=== PATIENT | female | born 1965 ===

== ENCOUNTER 2022-10-23 14:25 | Inpatient (IN) | payer MEDICARE ==
[2022-10-23] MEDS ORDERED: MAG HYDROX/AL HYDROX/SIMETH 30 ML CUP PO PRN (14:37)
[2022-10-23] MEDS ORDERED: MAGNESIUM HYDROXIDE 2,400 MG/30 ML CUP PO PRN (14:37)
[2022-10-23] MEDS ORDERED: haloperidoL 5 MG TAB PO PRN (14:39)
[2022-10-23] MEDS ORDERED: HALOPERIDOL LACTATE 5 MG/ML 1 ML VIAL IM PRN (14:39)
[2022-10-23] MEDS ORDERED: LORazepam 2 MG/ML INJ IM PRN (14:39)
[2022-10-23] MEDS: ACETAMINOPHEN TAB 325 MG TAB PO PRN ×2 (18:12→22:35)
[2022-10-23] MEDS: LORazepam 1 MG TAB PO PRN (18:13)
[2022-10-23] MEDS ORDERED: LORazepam 2 MG/ML INJ IM STA (18:35)
[2022-10-23] MEDS ORDERED: ZIPRASIDONE 20 MG VIAL IM STA (19:19)
[2022-10-24] MEDS: LORazepam 1 MG TAB PO PRN ×2 (00:39→11:36)
--- NOTE | 2022-10-24 05:35 | P.PN ---
Progress Note - Text Progress Note Date: 10/24/22 patient refused evaluation today 10/23 @ [id number]
[2022-10-24] MEDS ORDERED: LORazepam 2 MG/ML INJ IM PRN ×2 (07:58→12:20)
[2022-10-24 08:00] LABS: Basophils % (A) 0 %; Eosinophils # (A) 0.1 k/uL (0-0.7); Eosinophils % (A) 3 %; HCT 21.6 % (34.0-46.0); HGB 7.3 gm/dL (11.4-16.0); Lymphocytes % (A) 42 %; MCH 32.8 pg (25.0-35.0); MCHC 34.1 g/dL (31.0-37.0); MCV 96.4 fL (80.0-100.0); Mean Platelet Volume 7.6; Monocytes # (A) 0.2 k/uL (0-1.0); Monocytes % (A) 4 %; Neutrophils # (A) 2.4 k/uL (1.3-7.7); Neutrophils % (A) 49 %; Platelet Count 130 k/uL (150-450); RBC 2.24 m/uL (3.80-5.40); RDW 13.1 % (11.5-15.5); WBC 4.8 k/uL (3.8-10.6)
[2022-10-24 08:53] LABS: ALT 48 U/L (4-34); AST 45 U/L (14-36); African American GFR (CKD) >90 (>60 ml/min/1.73 sqM); Albumin 3.2 g/dL (3.5-5.0); Alkaline Phosphatase 57 U/L (38-126); Anion Gap 5 mmol/L; Blood Urea Nitrogen 11 mg/dL (7-17); Calcium 8.2 mg/dL (8.4-10.2); Carbon Dioxide 25 mmol/L (22-30); Chloride 110 mmol/L (98-107); Glucose 99 mg/dL (74-99); Non-African American GFR(CKD) >90 (>60 ml/min/1.73 sqM); Sodium 140 mmol/L (137-145); Total Bilirubin 0.2 mg/dL (0.2-1.3); Total Protein 5.3 g/dL (6.3-8.2)
[2022-10-24] MEDS ORDERED: CHOLECALCIFEROL 25 MCG (1000 IU) TABLET PO SCH (09:00)
[2022-10-24] MEDS ORDERED: ATORVASTATIN 40 MG TAB PO SCH (09:00)
[2022-10-24] MEDS ORDERED: ASPIRIN 81 MG PO SCH (09:00)
[2022-10-24 10:46] LABS: HCT 21.4 % (34.0-46.0); HGB 7.4 gm/dL (11.4-16.0); MCH 33.1 pg (25.0-35.0); MCHC 34.4 g/dL (31.0-37.0); MCV 96.4 fL (80.0-100.0); Mean Platelet Volume 7.9; Platelet Count 124 k/uL (150-450); RBC 2.22 m/uL (3.80-5.40); RDW 13.1 % (11.5-15.5); WBC 4.9 k/uL (3.8-10.6)
[2022-10-24 11:16] VITALS: BP 118/77; PULSE 126; RESP 16; TEMP 97.3
[2022-10-24] MEDS ORDERED: NALOXONE 0.4 MG/ML 1 ML VIAL IV PRN (12:16)
[2022-10-24] MEDS ORDERED: LORazepam 2 MG/ML INJ IV PRN (12:19)
== END 2022-10-24 12:13 | disposition short-term general hospital, planned readmission (82) | DRG 885 ==
LOC: 3MHU 17:58
PROVIDERS: ADMIT Psychiatry & Neurology Psychiatry; ATTEND Psychiatry & Neurology Psychiatry
DX: F39 Unspecified mood [affective] disorder (principal); F41.1 Generalized anxiety disorder; F90.9 Attention-deficit hyperactivity disorder, unspecified type; Z86.73 Personal history of transient ischemic attack (TIA), and cerebral infarction without residual deficits; Z87.820 Personal history of traumatic brain injury; Z56.0 Unemployment, unspecified
CPT/HCPCS: 80053; 83036; 84443; 85025; 85027

== ENCOUNTER 2022-10-24 11:45 | Inpatient (IN) | payer MEDICARE ==
[2022-10-24] MEDS ORDERED: NALOXONE 0.4 MG/ML 1 ML VIAL IV PRN (13:22)
[2022-10-24] MEDS ORDERED: LORazepam 2 MG/ML INJ IM PRN (13:26)
--- NOTE | 2022-10-24 16:55 | P.HPIM ---
History of Present Illness H&P Date: 10/24/22 Patient is a 56-year-old female with history of hypertension, ADHD presenting from outside hospital for suicidal ideations. Had cut her wrist at home. She is unsure, she bled from it. Patient was originally admitted to mental health unit. However, at other facility her hemoglobin was normal, but lab work care showed a hemoglobin of 7.4, platelet 124. Patient was also tachycardic and complaining of weakness and lightheadedness. Patient was then transferred out of the mental health unit for blood transfusion and further workup of acute symptomatic anemia. Currently her temperature is 98.1, pulse 74, respiratory rate 18, blood pressure 126/84, saturating 90% on room air. Hemoglobin last checked showed was 7.4, platelet 124, chloride 110, creatinine 0.7, TSH 3.5. Currently denies any lightheadedness, chest pain, shortness of breath. Pertinent positives and negatives as discussed in HPI, a complete review of systems was performed and all other systems are negative. Patient seen and examined at bedside. Vital signs reviewed General: nontoxic, no distress, appears at stated age Derm: warm, dry Head: atraumatic, normocephalic, symmetric Eyes: EOMI, no lid lag, anicteric sclera, pupils equal round reactive to light ENT: Nose and ears atraumatic Neck: No thyromegaly, supple Mouth: no lip lesion, mucus membranes moist Cardiovascular: S1S2 reg, no murmur, no edema Lungs: clear to auscultation bilateral, no rhonchi, no rales, no wheeze, no accessory muscle use Abdominal: soft, nontender to palpation, no guarding, no appreciable organomegaly Ext: no gross muscle atrophy, muscle strength muscle strength 5 out of 5 in all 4 extremities, no contractures Neuro: CN II-XII grossly intact Psych: Alert, oriented, appropriate affect Assessment/Plan: Active: Acute symptomatic anemia Hypertension Suicidal ideations Acute psychosis Anxiety ADHD -1 unit PRBCs ordered -Reticulocyte count, iron studies ordered -CBC following transfusion -Continue losartan -Psychiatry consulted -Sitter at bedside -suicide precautions The patient is admitted with an anticipated greater than 2 midnight stay as an inpatient status for evaluation of acute symptomatic anemia. Surrogate decision-maker: Daughter CODE STATUS: Full Code DVT prophylaxis: SCDs Anticipated discharge date: Pending clinical course Anticipated discharge place: Back to mental health unit A total of minutes was spent on the care of this complex patient more than 50% of the time was spent in counseling and care coordination. Past Medical History History of Any Multi-Drug Resistant Organisms: None Reported Smoking Status: Never smoker Medications and Allergies Home Medications Medication Instructions Recorded Confirmed Type ALPRAZolam [Xanax] 1 mg PO TID 10/24/22 10/24/22 History Aspirin EC [Ecotrin Low Dose] 81 mg PO DAILY 10/24/22 10/24/22 History Cholecalciferol [Vitamin D3 (25 50 mcg PO DAILY 10/24/22 10/24/22 History Mcg = 1000 Iu)] Dextroamphetamine/Amphetamine 15 mg PO DAILY 10/24/22 10/24/22 History [Adderall Xr 15 mg Capsule] Losartan Potassium 50 mg PO BID 10/24/22 10/24/22 History Allergies Allergy/AdvReac Type Severity Reaction Status Date / Time gabapentin AdvReac agitation, Verified 10/24/22 13:38 "felt like she was jumping out of her skin" prochlorperazine AdvReac Unknown Verified 10/24/22 13:38 [From Compazine] Sulfa (Sulfonamide AdvReac Unknown Verified 10/24/22 13:38 Antibiotics) zolmitriptan [From Zomig] AdvReac Unknown Verified 10/24/22 13:38 Physical Exam Vitals: Vital Signs Temp Pulse Resp BP Pulse Ox 10/24/22 13:34 98.1 F 74 18 126/84 100 Intake and Output 10/24/22 10/24/22 10/24/22 06:59 14:59 22:59 Other: Weight 99.159 kg Results Labs: Abnormal Lab Results - Last 24 Hours (Table) 10/24/22 Range/Units 12:00 Crossmatch See Detail
[2022-10-24] MEDS: ALPRAZolam 1 MG TAB PO SCH ×2 (17:12→21:29)
[2022-10-24] MEDS: LOSARTAN 50 MG TAB PO SCH (21:29)
[2022-10-25] MEDS ORDERED: LORazepam 2 MG/ML INJ IV PRN (00:45)
[2022-10-25] MEDS ORDERED: MELATONIN 5 MG TABLET PO SCH (02:46)
[2022-10-25] MEDS: ACETAMINOPHEN TAB 325 MG TAB PO PRN ×2 (02:59→18:30)
[2022-10-25] MEDS: ALPRAZolam 1 MG TAB PO SCH (10:07)
[2022-10-25] MEDS: LOSARTAN 50 MG TAB PO SCH ×2 (10:08→20:31)
[2022-10-25] MEDS: CHOLECALCIFEROL 25 MCG (1000 IU) TABLET PO SCH (10:08)
[2022-10-25 11:12] LABS: Basophils # (A) 0.02 X 10*3/uL (0.00-0.10); Basophils % (A) 0.4 %; Eosinophils % (A) 2.1 %; HCT 23.4 % (37.2-46.3); HGB 7.8 d/dL (12.0-15.0); Lymphocytes # (A) 2.35 X 10*3/uL (0.90-5.00); Lymphocytes % (A) 48.4 %; MCH 31.8 pg (27.0-32.0); MCHC 33.3 d/dL (32.0-37.0); MCV 95.5 FL (80.0-97.0); Mean Platelet Volume 10.1 FL (9.5-12.2); Monocytes # (A) 0.29 X 10*3/uL (0.20-1.00); NRBC Per 100 WBC 0 X 10*3/uL (0.00-0.01); Neutrophils # (A) 2.09 X 10*3/uL (1.80-7.70); Neutrophils % (A) 42.9 %; Platelet Count 127 X 10*3/uL (140-440); RBC 2.45 X 10*6/uL (4.10-5.20); RDW 13.2 % (11.5-14.5); WBC 4.86 X 10*3/uL (4.50-10.00)
[2022-10-25 12:10] LABS: % Iron Saturation 16.04 (12.00-45.00); Ferritin 71.7 ng/mL (10.0-291.0)
[2022-10-25] MEDS ORDERED: HALOPERIDOL LACTATE 5 MG/ML 1 ML VIAL IM PRN (13:28)
[2022-10-25] MEDS ORDERED: LORazepam 2 MG/ML INJ IM PRN (13:28)
[2022-10-25] MEDS ORDERED: haloperidoL 5 MG TAB PO PRN (13:28)
--- NOTE | 2022-10-25 13:33 | P.CN ---
Psychiatric Consult - . Consult date: 10/25/22 Consult:: 10/25/22 11:44 IDENTIFYING DATA: This patient is a [] 56-year-old female, currently lives alone in an apartment, she is , she has 3 kids, she is unemployed and collects SSD. REASON FOR REFERRAL: Psychiatry was consulted for psychiatric follow-up as patient was previously on the mental health unit for suicide attempt HISTORY OF PRESENT ILLNESS: The patient presented to the hospital initially as a transfer from [facility]. Patient was petitioned by police as she was found in a bathtub in a pool of blood with razor blades after a suicide attempt. Patient after being transferred to the ER was combative, aggressive and agitated and required emergency prn medications and also restraints. Patient was admitted involuntarily to the mental health unit however her hemoglobin dropped significantly to 7.4 and platelet count was 124. Patient cut her wrists at home, she was tachycardic. Patient's repeat hemoglobin was 7.8 on 10/25. Patient was transferred to the medical floors and consult was placed for psychiatric evaluation. Patient had a one-to-one sitter at her side. She was sitting in the chair and agreeable to seek to instructional writer. She claims that she was in a "bad spot" last Friday. She states that she didn't want to live anymore. She claims that a lot of things have been building up in her life and has been feeling lonely and claims that a lot of her relationships in her life have been changing, she was fairly vague about what she is making about this. She claims that her kids up and leaving the house as they are growing up. Claims that she felt that her "world was turning inside out". States that she had a severe concussion earlier on and also a history of a stroke in June while she was in [place] living with a friend. She states that she moved back to [place] to try to live with her ex-. States that she isn't feeling depressed and "sad" and describes having mood swings. She also states that she has anxiety as well. However the anxiety is mainly at nighttime. States assure sleep has been on and off appetite as been fair. At this time patient denies any current suicidal or homical ideations, intent or plan. Patient denies any auditory, visual hallucinations and denies any paranoia or delusions. Patients admits to using now recreational drugs or cigarettes. PAST PSYCHIATRIC HISTORY: Patient has a a history of depression and anxiety and also ADHD. Patient also has a history of a stroke and also a concussion within the past few months. Patient is currently on Xanax 1 mg 3 times a day and has been on it for several years, Adderall for ADHD. She claims that she was previously admitted to a psychiatric unit in [facility] about 5 years ago and has had several before that. She claims that she has a psychiatrist that she sees in [place] as well. [Patient denies any history of suicide attempts in the past.] PAST MEDICAL HISTORY: As per medical H&P. ALLERGIES: as per EMR. CHEMICAL DEPENDENCY HISTORY: as per HPI. FAMILY PSYCHIATRIC/SUBSTANCE USE HISTORY: Claims that she is adopted and does not know her biological family. SOCIAL HISTORY: Patient was born and raised in [place] and also [facility]. States that she currently lives alone in an apartment, she is , she has 3 kids, she is unemployed and collecting SSD at this time. States that she completed high school and also her bachelor's in college. 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 Denies any legal history. MENTAL STATUS EXAM: General Appearance: Patient appears to be sitting in the chair, stated age is alert, pleasant, and tends to be cooperative. Patient appears to have [fair] hygiene and grooming wearing hospital gown with [fair] eye contact. Behavior: [Patient is calmly lying in bed without any agitated behavior.] Attempts to cooperate. Speech: Patient's speech is fluent and nonpressured. Mood/Affect: Patient reports their mood is "[depressed and sad]", affect is congruent Suicidality/Homicidality: Patient denies having any suicidal or homicidal ideation intent or plan. Perceptions: Patient denies any visual hallucinations [and denies any auditory hallucinations] Though content/process: There is no evidence of any delusional thought content and thought process is linear and goal-directed. Focused on her stressors. Memory and concentration: AOX3, grossly intact for the purposes of this session. Can spell "WORLD" backwards Judgment and insight: [poor] IMPRESSIONS: Mood disorder unspecified History of stroke and TBI History of ADHD Generalized anxiety disorder PLAN: -At this time patient DOES meet criteria for inpatient psychiatric admission. -Would recommend the following medication changes/additions: start lithium 150 mg bid for mood stabilization, lexapro 5 mg daily for mood/anxiety plan to increase to 10 mg starting friday. trazodone 50 mg qhs for insomnia/mood. Haldol and Ativan prn for agitation severe. can continue with home dose of xanax 1 mg tid prn for anxiety. [-Continue 1:1 sitter for safety]until patient is safely transferred to the MHU. [-Cannot leave AMA at this time. Patient will need a petition and certification if attempting to leave AMA.] [-When medically stable, patient is eligible for transfer to a psych bed when available.] [-Communicated plan to patient's nurse] -Will continue to follow along if needed over the weekend -Please contact with any questions.
--- NOTE | 2022-10-25 14:05 | P.PN ---
Subjective Progress Note Date: 10/25/22 Hospital Course: 56-year-old female with history of hypertension, ADHD presenting from outside hospital for suicidal ideations. Had cut her wrist at home. She is unsure, she bled from it. Patient was originally admitted to mental health unit. However, at other facility her hemoglobin was normal, but lab work care showed a hemoglobin of 7.4, platelet 124. Patient was also tachycardic and complaining of weakness and lightheadedness. Patient was then transferred out of the mental health unit for blood transfusion and further workup of acute symptomatic anemia. She is status post 1 Unit pRBCs. Subjective: Seen and examined at bedside. Still complaining of weakness, fatigue, and shortness of breath. Denies any suicidal ideations at the moment. No other signs of bleeding. Pertinent positives and negatives as discussed above, a complete review of systems was performed and all other systems are negative. Vitals Signs Reviewed. General: nontoxic, no distress, appears at stated age Derm: warm, dry, left wrist dressing clean, dry, intact Head: atraumatic, normocephalic, symmetric Eyes: EOMI, no lid lag, anicteric sclera Mouth: no lip lesion, mucus membranes moist Cardiovascular: S1S2 reg, no murmur Lungs: CTA bilateral, no rhonchi, no rales , no accessory muscle use Abdominal: soft, nontender to palpation, no guarding, no appreciable organomegaly Ext: no gross muscle atrophy, no edema, no contractures Neuro: CN II-XI grossly intact, no focal neuro deficits Psych: Alert, oriented, appropriate affect Data Reviewed Today: Pertinent Labs: Hemoglobin 7.8, platelet 127, RDW 13.2, reticulocyte count 33.6 (24.1-35.8) Imaging: No new imaging Assessment and Plan: Acute symptomatic anemia Hypertension Suicidal ideations Mood disorder Generalized anxiety disorder History of ADHD -s/p 1 unit pRBCs, not appropriate rise -Reticulocyte count inappropriately normal -Concern for bone marrow failure, hematology consulted -Psychiatry following -Started on lithium, Lexapro, trazodone, Haldol and Ativan when necessary DVT ppx: SCDs Code status: Full code Anticipated discharge place: Mental health unit Anticipated discharge time: 1-2 days Objective - Vital Signs Vital signs: Vital Signs Temp 97.7 F 10/25/22 07:11 Pulse 69 10/25/22 07:11 Resp 16 10/25/22 07:11 BP 113/75 10/25/22 07:11 Pulse Ox 98 10/25/22 07:11 FiO2 Intake & Output 10/24/22 10/25/22 10/25/22 18:59 06:59 18:59 Intake Total 310 Balance 310 Weight 99.159 kg Intake: Blood Product 310 Rc As-1 Unit 310 [id number] Other: Voiding Method Toilet Toilet # Voids 2 1 - Labs CBC & Chem 7: 10/25/22 05:26 Labs: Abnormal Lab Results - Last 24 Hours (Table) 10/24/22 10/25/22 Range/Units 12:00 05:26 RBC 2.45 L (4.10-5.20) X 10*6/uL Hgb 7.8 L (12.0-15.0) d/dL Hct 23.4 L (37.2-46.3) % Plt Count 127 L (140-440) X 10*3/uL Crossmatch See Detail
[2022-10-25] MEDS: ESCITALOPRAM 5 MG TAB PO SCH (15:47)
[2022-10-25] MEDS: LITHIUM CARBONATE 150 MG CAP PO SCH ×2 (15:48→20:31)
--- NOTE | 2022-10-25 17:14 | P.CONS ---
History of Present Illness - Reason for Consult Consult date: 10/25/22 Anemia - History of Present Illness Ms. Herbert is a 56-year-old woman with a past medical history significant for hypertension from hematology has been consulted regarding anemia. She was hospitalized after suicide attempt where she had cut her wrists with a razor. It is unclear how much blood loss there was at the time she was found. It was noted that she was tachycardic on initial presentation with hemoglobin of 7.4 and platelets of 124. Prior to the suicide attempt, she denies any melena, hematochezia, or bright red blood per rectum. She denies any history of iron deficiency anemia and thinks her hemoglobin has always been normal. She denies any history of menorrhagia and had a hysterectomy approximately 10 years ago. She notes having a normal diet prior to presentation and not adhering to a vegan or vegetarian diet. She had a colonoscopy about 5 to 6 years ago and was told at that time she had a polyp and required repeat colonoscopy in 5 years. There were no constitutional symptoms prior to presentation. She does note having had orthostatic dizziness, progressive fatigue, and dyspnea on exertion prior to presentation. She does note having had a hospitalization in [place] over the last 3 months, where she was diagnosed with "stroke". She notes there was no significant finding on work-up at that time. On discussion, she notes there was thought of her initial presentation in [place] being due to a seizure, but notes EEG was performed and was nonremarkable. She thinks at that time, her hemoglobin was normal. CBC on today's evaluation is remarkable for hemoglobin 7.8 (MCV 95.5, MCH 31.8), platelets 127, WBC 4.86. Anemia work-up performed on admission revealed ferritin 71.7, iron saturation 16.04%, vitamin B12 382, folate 9.50, TSH 3.51. Review of Systems 14 point review of systems was conducted with pertinent positives and negatives as noted per HPI Past Medical History Past Medical History: CVA/TIA, Hypertension Additional Past Medical History / Comment(s): long covid, stroke July 12, 2022- no residual, melanoma 2013, History of Any Multi-Drug Resistant Organisms: None Reported Past Surgical History: Hysterectomy Additional Past Surgical History / Comment(s): neck surgery 2007, finger surgery 2022, Past Anesthesia/Blood Transfusion Reactions: No Reported Reaction Smoking Status: Never smoker Medications and Allergies Home Medications Medication Instructions Recorded Confirmed Type ALPRAZolam [Xanax] 1 mg PO TID 10/24/22 10/24/22 History Aspirin EC [Ecotrin Low Dose] 81 mg PO DAILY 10/24/22 10/24/22 History Cholecalciferol [Vitamin D3 (25 50 mcg PO DAILY 10/24/22 10/24/22 History Mcg = 1000 Iu)] Dextroamphetamine/Amphetamine 15 mg PO DAILY 10/24/22 10/24/22 History [Adderall Xr 15 mg Capsule] Losartan Potassium 50 mg PO BID 10/24/22 10/24/22 History Allergies Allergy/AdvReac Type Severity Reaction Status Date / Time gabapentin AdvReac agitation, Verified 10/24/22 13:38 "felt like she was jumping out of her skin" prochlorperazine AdvReac Unknown Verified 10/24/22 13:38 [From Compazine] Sulfa (Sulfonamide AdvReac Unknown Verified 10/24/22 13:38 Antibiotics) zolmitriptan [From Zomig] AdvReac Unknown Verified 10/24/22 13:38 Physical Exam Vitals: Vital Signs Temp Pulse Pulse Resp BP BP Pulse Ox 10/25/22 14:00 97.9 F 89 16 146/90 98 10/25/22 07:11 97.7 F 69 16 113/75 98 10/24/22 23:50 98.2 F 85 18 124/81 97 10/24/22 19:38 98.2 F 87 16 143/89 95 10/24/22 18:55 98.0 F 81 86 18 130/82 119/80 99 10/24/22 17:51 97.9 F 88 16 124/80 99 Intake and Output 10/25/22 10/25/22 10/25/22 06:59 14:59 22:59 Other: Voiding Method Toilet # Voids 1 - Constitutional General appearance: cooperative, no acute distress - EENT Pale mucous membranes with no evidence of glossitis or scalloped edges of the tongue Eyes: EOMI - Respiratory Respiratory: bilateral: CTA - Cardiovascular Rhythm: regular - Gastrointestinal General gastrointestinal: no distended, soft - Integumentary Integumentary: pale - Musculoskeletal No scalloping of the nails - Psychiatric Psychiatric: A&O x's 3 Results CBC & Chem 7: 06/30/23 05:26 Labs: Abnormal Lab Results - Last 24 Hours (Table) 10/24/22 10/25/22 Range/Units 12:00 05:26 RBC 2.45 L (4.10-5.20) X 10*6/uL Hgb 7.8 L (12.0-15.0) d/dL Hct 23.4 L (37.2-46.3) % Plt Count 127 L (140-440) X 10*3/uL Crossmatch See Detail Assessment and Plan (1) Normocytic anemia Current Visit: Yes Status: Acute Code(s): D64.9 - ANEMIA, UNSPECIFIED SNOMED Code(s): 982992095 Plan: #Normocytic anemia, thrombocytopenia -Noted to have normocytic normochromic anemia with hemoglobin 7.8 MCV 95.5 -Platelets are 127 -She notes having had blurry vision, orthostatic dizziness, fatigue, headache prior to presentation -Anemia work-up initiated on admission was significant for borderline low ferritin with low iron saturation -It is not clear if she had significant blood loss from her suicide attempt on the left wrist -Given her borderline low iron studies and symptoms prior to admission, it is not unreasonable to trial course of IV iron for 3 days to see if this improves her hemoglobin and her symptoms over the next month -Reticulocyte count is ordered -We will add methylmalonic acid to ensure there is no functional vitamin B12 deficiency -Given her previous hospitalization in [place] along with her current hospitalization and anemia, we will check copper and ceruloplasmin to assess for copper deficiency and more specifically Daniel's disease
[2022-10-25] MEDS: SODIUM FERRIC GLUCONAT-SUCROSE 125 MG in SODIUM CHLORIDE 0.9% 100 ML IVPB SCH (18:25)
[2022-10-25] MEDS: traZODone HCL 50 MG TAB PO SCH (20:31)
[2022-10-25 20:42] LABS: ALT 47 U/L (8-44); AST 29 U/L (13-35); Albumin 4.2 d/dL (3.8-4.9); Albumin/Globulin Ratio 2.47 Ratio (1.60-3.17); Alkaline Phosphatase 75 U/L (41-126); BUN/Creat Ratio 9.25 Ratio (12.00-20.00); Blood Urea Nitrogen 7.4 mg/dL (9.0-27.0); Calcium 9.3 mg/dL (8.7-10.3); Carbon Dioxide 27.8 mmol/L (21.6-31.8); Chloride 107 mmol/L (96-109); Globulin 1.7 d/dL (1.6-3.3); Glucose 112 mg/dL (70-110); Potassium 4.3 mmol/L (3.5-5.5); Sodium 144 mmol/L (135-145); Total Bilirubin 0.2 mg/dL (0.3-1.2); Total Protein 5.9 d/dL (6.2-8.2)
[2022-10-25] MEDS: ALPRAZolam 1 MG TAB PO PRN (21:59)
[2022-10-26] MEDS: ACETAMINOPHEN TAB 325 MG TAB PO PRN (06:11)
[2022-10-26 08:00] VITALS: RESP 18
[2022-10-26 09:48] LABS: Basophils # (A) 0.02 X 10*3/uL (0.00-0.10); Basophils % (A) 0.4 %; Eosinophils # (A) 0.11 X 10*3/uL (0.04-0.35); Eosinophils % (A) 2.3 %; HCT 26.9 % (37.2-46.3); HGB 8.8 d/dL (12.0-15.0); Lymphocytes # (A) 2.15 X 10*3/uL (0.90-5.00); Lymphocytes % (A) 44.1 %; MCH 31.5 pg (27.0-32.0); MCHC 32.7 d/dL (32.0-37.0); MCV 96.4 FL (80.0-97.0); Mean Platelet Volume 10.2 FL (9.5-12.2); Monocytes # (A) 0.32 X 10*3/uL (0.20-1.00); Monocytes % (A) 6.6 %; NRBC Per 100 WBC 0 X 10*3/uL (0.00-0.01); Neutrophils # (A) 2.25 X 10*3/uL (1.80-7.70); Neutrophils % (A) 46.2 %; Platelet Count 172 X 10*3/uL (140-440); RBC 2.79 X 10*6/uL (4.10-5.20); RDW 13.5 % (11.5-14.5); WBC 4.87 X 10*3/uL (4.50-10.00)
[2022-10-26] MEDS: ESCITALOPRAM 5 MG TAB PO SCH (09:59)
[2022-10-26] MEDS: LOSARTAN 50 MG TAB PO SCH ×2 (09:59→20:41)
[2022-10-26] MEDS: ALPRAZolam 1 MG TAB PO PRN (09:59)
[2022-10-26] MEDS: CHOLECALCIFEROL 25 MCG (1000 IU) TABLET PO SCH (10:00)
[2022-10-26] MEDS: SODIUM FERRIC GLUCONAT-SUCROSE 125 MG in SODIUM CHLORIDE 0.9% 100 ML IVPB SCH (10:00)
[2022-10-26] MEDS: LITHIUM CARBONATE 150 MG CAP PO SCH ×2 (11:30→20:41)
--- NOTE | 2022-10-26 12:44 | P.DS ---
Providers Date of admission: 10/24/22 11:45 Expected date of discharge: 10/26/22 Attending physician: Ruben Shipman MD Consults: 10/24/22 13:23 Consult Physician Routine Consulting Provider: Festus Giraldo Consult Reason/Comments: SI Do you want consulting provider notified?: Yes 10/25/22 13:58 Consult Physician Routine Consulting Provider: Miguel Machado Consult Reason/Comments: symptomatic anemia, normal retic count Do you want consulting provider notified?: Yes Hospital Course: Discharge Diagnosis: Acute blood loss anemia related to self-inflicted wound on the rest Suicide attempt Hypertension History of ADHD Hospital Course: Patient is a 56-year-old female with ADHD and hypertension who was transferred from the mental health unit to the medical floor due to anemia. Initial hemoglobin was 7.4. She was subsequently transferred and received 1 unit of packed red blood cells. Repeat hemoglobin was 7.8. Hematology and oncology were contacted. Iron studies showed mild iron deficiency anemia. Vitamin B12, folate, and TSH within normal limits. On the morning of 10/26/22 she had received 2 doses of IV iron and hemoglobin have escalated to 8.8. Of note the patient was found in a bathtub full of her own blood and her acute anemia is attributed to this, I anticipate that her blood count was normal at the other hospital as it appears this lab was taken immediately upon arrival to the emergency room, it likely did not have time to equilibrate.. She was discharged back to the mental health unit in stable condition. She'll follow up with her PCP and hematology oncology 2 days to one week after discharge. Patient seen and examined at bedside. She complains of a headache and overall body cramps. She attributes this to lithium. She denies any chest pain, shortness of breath, nausea, vomiting. Vital signs reviewed and stable. General: nontoxic, no distress, appears at stated age Cardiovascular: S1S2 reg, no murmur, positive posterior tibial pulse bilateral, Lungs: CTA bilateral, no rhonchi, no rales , no accessory muscle use/ left wrist with dressing in place Abdominal: soft, nontender to palpation, no guarding, no appreciable organomegaly Ext: no gross muscle atrophy, no edema b/l lower extremities, no contractures Neuro: CN II-XI grossly intact, no focal neuro deficits Psych: Alert, oriented, appropriate affect A total of 37 minutes of time were spent preparing this complex discharge summary. Patient was discharged on 10/26/22. This dictation was prepared using [employer] voice recognition software. Though every attempt is made to correct errors during dictation some may still exist. Plan - Discharge Summary Discharge Rx Participant: No New Discharge Prescriptions: New traZODone HCL [Desyrel] 50 mg PO HS tab haloperidoL [Haldol] 5 mg PO Q6HR PRN tab PRN Reason: Agitation Ferrous Sulfate [Iron (65 MG Elemental)] 325 mg PO DAILY #30 tab Escitalopram [Lexapro] 5 mg PO DAILY tab Acetaminophen Tab [Tylenol] 650 mg PO Q6HR PRN tab PRN Reason: Mild Pain Or Fever > 100.5 Escitalopram [Lexapro] 10 mg PO DAILY tab [place] Carbonate 150 mg PO BID cap Continue Losartan Potassium 50 mg PO BID ALPRAZolam [Xanax] 1 mg PO TID Cholecalciferol [Vitamin D3 (25 Mcg = 1000 Iu)] 50 mcg PO DAILY Discontinued Dextroamphetamine/Amphetamine [Adderall Xr 15 mg Capsule] 15 mg PO DAILY No Action Aspirin EC [Ecotrin Low Dose] 81 mg PO DAILY Discharge Medication List ALPRAZolam [Xanax] 1 mg PO TID 10/24/22 [History] Aspirin EC [Ecotrin Low Dose] 81 mg PO DAILY 10/24/22 [History] Cholecalciferol [Vitamin D3 (25 Mcg = 1000 Iu)] 50 mcg PO DAILY 10/24/22 [History] Losartan Potassium 50 mg PO BID 10/24/22 [History] Acetaminophen Tab [Tylenol] 650 mg PO Q6HR PRN tab 10/26/22 [Rx] Escitalopram [Lexapro] 5 mg PO DAILY tab 10/26/22 [Rx] Escitalopram [Lexapro] 10 mg PO DAILY tab 10/26/22 [Rx] Ferrous Sulfate [Iron (65 MG Elemental)] 325 mg PO DAILY #30 tab 10/26/22 [Rx] [place] Carbonate 150 mg PO BID cap 10/26/22 [Rx] haloperidoL [Haldol] 5 mg PO Q6HR PRN tab 10/26/22 [Rx] traZODone HCL [Desyrel] 50 mg PO HS tab 10/26/22 [Rx] Follow up Appointment(s)/Referral(s): Loida Manrique MD [STAFF PHYSICIAN] - 1 Week Activity/Diet/Wound Care/Special Instructions: CBC in 3 days, no need for continued IV iron. follow-up with pcp in 1week Discharge Disposition: TRANSFER TO PSYCH HOSP/UNIT
[2022-10-26] MEDS ORDERED: KETOROLAC 15 MG/ML 1 ML VIAL IVP STA (15:15)
[2022-10-26] MEDS: traZODone HCL 50 MG TAB PO SCH (20:41)
[2022-10-26 22:41] VITALS: BP 107/70; PULSE 73; TEMP 98.5
[2022-10-27] MEDS: ALPRAZolam 1 MG TAB PO PRN (00:20)
[2022-10-27] MEDS ORDERED: ESCITALOPRAM 10 MG TAB PO SCH (09:00)
[2022-10-28 11:36] LABS: Reticulocyte % 3.97
[2022-10-29 03:05] LABS: Methylmalonic Acid 0.14 umol/L (<0.40)
== END 2022-10-27 00:31 | DRG 914 ==
LOC: 4SSUR 11:45 → 3MHU 10-27 00:15 → 4SSUR 10-27 00:15
PROVIDERS: ADMIT Student in an Organized Health Care Education/Training Program; ATTEND Student in an Organized Health Care Education/Training Program
PROC: 30233N1 Transfusion of Nonautologous Red Blood Cells into Peripheral Vein, Percutaneous Approach (ICD-10-PCS; principal; 2022-10-24)
DX: T14.91XA Suicide attempt, initial encounter (principal); D62 Acute posthemorrhagic anemia; F23 Brief psychotic disorder; X78.8XXA Intentional self-harm by other sharp object, initial encounter; S61.519A Laceration without foreign body of unspecified wrist, initial encounter; D50.9 Iron deficiency anemia, unspecified; I10 Essential (primary) hypertension; F90.9 Attention-deficit hyperactivity disorder, unspecified type; F41.1 Generalized anxiety disorder; F39 Unspecified mood [affective] disorder; Z91.52 Personal history of nonsuicidal self-harm; Z86.73 Personal history of transient ischemic attack (TIA), and cerebral infarction without residual deficits; Z79.82 Long term (current) use of aspirin; Z90.710 Acquired absence of both cervix and uterus; Z88.8 Allergy status to other drugs, medicaments and biological substances; Z88.2 Allergy status to sulfonamides
CPT/HCPCS: 80053; 82390; 82525; 82550; 82607; 82728; 82746; 83540; 83550; 83921; 84443; 84466; 85025; 85045; 86850; 86900; 86901; 86920; 94660

== ENCOUNTER 2022-10-27 00:19 | Inpatient (IN) | payer MEDICARE ==
--- NOTE | 2022-10-27 10:11 | P.HP ---
Psychiatric H&P - . H&P Date: 10/27/22 History & Physical: Allergies Allergy/AdvReac Type Severity Reaction Status Date / Time gabapentin AdvReac agitation, Verified 10/24/22 13:38 "felt like she was jumping out of her skin" prochlorperazine AdvReac Unknown Verified 10/24/22 13:38 [From Compazine] Sulfa (Sulfonamide AdvReac Unknown Verified 10/24/22 13:38 Antibiotics) zolmitriptan [From Zomig] AdvReac Unknown Verified 10/24/22 13:38 Vital Signs Temp 97.7 F 10/27/22 00:53 Pulse 80 10/27/22 00:53 Resp 18 10/27/22 00:53 BP 101/56 10/27/22 00:53 Pulse Ox 95 10/27/22 00:53 FiO2 Intake & Output 10/26/22 10/27/22 10/27/22 18:59 06:59 18:59 Weight 99.2 kg 98.6 kg 10/27/22 10:02 This is a psychiatric evaluation on Cecille Herbert who is a 56-year-old female with long history of mental illness Patient reports that she's been seeing a psychiatrist for over 13 years as an outpatient However she stated that she only takes Xanax and Adderall She reports that she currently lives with her and that she has 3 adult children who have be on their own now She reports that she was hospitalized after she was cutting her wrist and fell that she was aborted to everyone She initially denied that she was drinking too much but feels at times patient brought up alcohol as a common problem She also reports that she was in [place] visiting a friend and that she ended up having his stroke for which she was taken to the hospital She said that she was then treated like a drug addict by the nursing staff and watches thrown off to the streets She denies that she is experiencing any auditory or visual hallucinations She states that she had blood transfusions after admission yesterday and is here for treatment She currently denies any thoughts of wanting to hurt herself or others Past history personal and social history Patient remains very disorganized with her history with flight of ideas and poor concentration and attention span Patient is unable to give any specific details about her previous psychiatric treatment but states that she was only taking Xanax and Adderall as well as drinking from time to time She was unclear about the whole incident where she was in [place] recently Mental status examination: MENTAL STATUS EXAM: General Appearance: Patient appears to be heavyset female stated age is alert, directable, and attempts to cooperate. Patient appears to have fair hygiene and grooming. Behavior: Patient is seated without any agitated behavior. Patient seems to have some difficulty with ambulation was off her knees Speech: Patient's speech is fluent and nonpressured. Mood/Affect: Patient reports their mood is depressed and anxious, affect is congruent and constricted. Suicidality/Homicidality: Patient denies having any homicidal ideation intent or plan. Denies any suicidal ideations intent or plan Perceptions: Patient denies any visual hallucinations and denies any auditory hallucinations Though content/process: Patient exhibits some flight of ideas and tangentiality Patient remains disorganized in her thought processes Memory and concentration: AOX3, grossly intact for the purposes of this session. Judgment and insight: poor/impulsive STRENGTHS/WEAKNESSES: strength is that patient is resilient. Weakness is that patient has poor judgment and is impulsive INTELLECT: average IMPRESSIONS: Bipolar disorder mixed type Personality disorder with borderline traits Alcohol use disorder unspecified Benzodiazepine use disorder unspecified Stimulant use disorder unspecified PLAN: -Patient is admitted under voluntary status to MHU for stabilization of psychiatric symptoms and safety. Patient has signed adult voluntary form and medication consent and is placed in patient's chart. -Medications : Patient at this time remains unclear about her current medications and we will review her previous meds before restarting Patient reports that she was started on an SSRI and lithium carbonate while she was on the medical floor which will be restarted -Ativan and Haldol PRN for agitation/aggression -Patient was counselled on substance abuse and desired to cut back on use -Patient was informed of the risks, benefits and side effects of the medication and patient verbally consented to taking the medications. Patient signed med consent form and was placed in chart. -Internal Medicine consult to perform medical evaluation and physical. -SW on board for discharge planning. Encourage patient to participate in groups to work on coping skills. Eber Garcia M.D. 10/27/2022
[2022-10-27] MEDS ORDERED: ESCITALOPRAM 5 MG TAB PO SCH (14:15)
[2022-10-27] MEDS: ASPIRIN 81 MG PO SCH (14:56)
[2022-10-27] MEDS: CHOLECALCIFEROL 25 MCG (1000 IU) TABLET PO SCH (14:56)
[2022-10-27] MEDS: clonazePAM 0.5 MG TAB PO SCH ×2 (14:56→21:14)
[2022-10-27] MEDS: ESCITALOPRAM 10 MG TAB PO SCH (14:57)
[2022-10-27] MEDS: FERROUS SULFATE 325 MG TAB PO SCH (14:57)
[2022-10-27] MEDS ORDERED: MAG HYDROX/AL HYDROX/SIMETH 30 ML CUP PO PRN (15:10)
[2022-10-27] MEDS ORDERED: MAGNESIUM HYDROXIDE 2,400 MG/30 ML CUP PO PRN (15:10)
[2022-10-27] MEDS ORDERED: bisacodyL 5 MG TABLET.DR PO PRN (15:41)
[2022-10-27] MEDS ORDERED: polyethylene glycoL 3350 17 GM POWD.PACK PO STA (15:41)
--- NOTE | 2022-10-27 16:02 | P.CONS ---
History of Present Illness - Reason for Consult Consult date: 10/27/22 - History of Present Illness Patient is a 56-year-old female with ADHD and hypertension who recently on the medical floor due to anemia. Initial hemoglobin was 7.4. She was subsequently transferred and received 1 unit of packed red blood cells. Repeat hemoglobin was 7.8. Hematology and oncology were contacted. Iron studies showed mild iron deficiency anemia. Vitamin B12, folate, and TSH within normal limits. On the morning of 10/26/22 she had received 2 doses of IV iron and hemoglobin have escalated to 8.8. She was discharged back to the mental health unit in stable condition. Recommnedations were made for follow up with her PCP and hematology oncology 2 days to one week after discharge. Patient seen and examined at bedside. She is doing okay. She is having some lightheadedness and dizziness which is there all the time but worse with standing. She denies any chest pain, shortness breath, nausea, vomiting. Vital signs reviewed General: nontoxic, no distress, appears at stated age Derm: Approximately 1.5 cm left wrist laceration, with significant healing no significant erythema, warmth, or discharge noted Eyes: EOMI, no lid lag, anicteric sclera, pupils equal round reactive to light ENT: Nose and ears atraumatic, no thrush, no pharyngeal erythema Cardiovascular: S1S2 reg, no murmur, positive posterior tibial pulse bilateral, no edema, capillary refill less than 2 seconds Lungs: clear to auscultation bilateral, no rhonchi, no rales, no wheeze, no accessory muscle use Ext: no gross muscle atrophy, muscle strength 5 out of 5 in all 4 extremities, no contractures Neuro: CN II-XII grossly intact, no focal neuro deficits Psych: Alert, oriented, appropriate affect Assessment/Plan: Acute blood loss anemia secondary to wrist laceration Left wrist laceration -Repeat CBC in the morning -Ferrous sulfate 30 days -Outpatient follow-up with her primary care physician one week after discharge -Mupirocin ointment to left wrist twice daily, alert sound physicians if develops purulent drainage or increased warmth, or dehiscence of the wound Hypertension -Continue with losartan, decrease to once daily -Follow blood pressures Imaging: none new Data Review: Temperature 97.7, pulse 80, respirations 18, blood pressure 101/56, O2 sat 95% HgB from 10/26/22 8.8 Thank you for allowing us to participate in the care of this pleasant patient. Do not hesitate to contact us with questions. Someone can be reached from the [facility] hospitalist group all hours of the day at [phone] or via [employer]. This dictation was prepared using [employer] voice recognition software. Though every attempt is made to correct errors during dictation some may still exist. Past Medical History Past Medical History: CVA/TIA, Hypertension Additional Past Medical History / Comment(s): long covid, stroke July 12, 2022- no residual, melanoma 2013, History of Any Multi-Drug Resistant Organisms: None Reported Past Surgical History: Hysterectomy Additional Past Surgical History / Comment(s): neck surgery 2007, finger surgery 2022, Past Anesthesia/Blood Transfusion Reactions: No Reported Reaction Past Psychological History: Anxiety, Depression, PTSD Additional Psychological History / Comment(s): 15 year history Smoking Status: Never smoker Medications and Allergies Home Medications Medication Instructions Recorded Confirmed Type ALPRAZolam [Xanax] 1 mg PO TID 10/24/22 10/24/22 History Aspirin EC [Ecotrin Low Dose] 81 mg PO DAILY 10/24/22 10/24/22 History Cholecalciferol [Vitamin D3 (25 50 mcg PO DAILY 10/24/22 10/24/22 History Mcg = 1000 Iu)] Losartan Potassium 50 mg PO BID 10/24/22 10/24/22 History Acetaminophen Tab [Tylenol] 650 mg PO Q6HR PRN tab 10/26/22 Rx Escitalopram [Lexapro] 5 mg PO DAILY tab 10/26/22 Rx Escitalopram [Lexapro] 10 mg PO DAILY tab 10/26/22 Rx Ferrous Sulfate [Iron (65 MG 325 mg PO DAILY #30 tab 10/26/22 Rx Elemental)] [place] Carbonate 150 mg PO BID cap 10/26/22 Rx haloperidoL [Haldol] 5 mg PO Q6HR PRN tab 10/26/22 Rx traZODone HCL [Desyrel] 50 mg PO HS tab 10/26/22 Rx Allergies Allergy/AdvReac Type Severity Reaction Status Date / Time gabapentin AdvReac agitation, Verified 10/24/22 13:38 "felt like she was jumping out of her skin" prochlorperazine AdvReac Unknown Verified 10/24/22 13:38 [From Compazine] Sulfa (Sulfonamide AdvReac Unknown Verified 10/24/22 13:38 Antibiotics) zolmitriptan [From Zomig] AdvReac Unknown Verified 10/24/22 13:38 Physical Exam Osteopathic Statement: *. No significant issues noted on an osteopathic structural exam other than those noted in the History and Physical/Consult. Vitals: Vital Signs Temp Pulse Resp BP Pulse Ox 10/27/22 15:11 97.8 F 114 H 16 115/70 98 10/27/22 00:53 97.7 F 80 18 101/56 95 Intake and Output 10/27/22 10/27/22 10/27/22 06:59 14:59 22:59 Other: Weight 99.2 kg 98.6 kg
[2022-10-27] MEDS: ACETAMINOPHEN TAB 325 MG TAB PO PRN (18:18)
[2022-10-27] MEDS: LITHIUM CARBONATE 300 MG CAP PO SCH (21:14)
[2022-10-27] MEDS: LOSARTAN 50 MG TAB PO SCH (21:14)
[2022-10-27] MEDS: traZODone HCL 50 MG TAB PO SCH ×2 (21:14→21:17)
[2022-10-27] MEDS: haloperidoL 5 MG TAB PO PRN (21:15)
[2022-10-28] MEDS: CHOLECALCIFEROL 25 MCG (1000 IU) TABLET PO SCH (09:26)
[2022-10-28] MEDS: ESCITALOPRAM 10 MG TAB PO SCH (09:26)
[2022-10-28] MEDS: ASPIRIN 81 MG PO SCH (09:26)
[2022-10-28] MEDS: LOSARTAN 50 MG TAB PO SCH ×2 (09:27→20:33)
[2022-10-28] MEDS: FERROUS SULFATE 325 MG TAB PO SCH (09:27)
[2022-10-28] MEDS: LITHIUM CARBONATE 300 MG CAP PO SCH ×2 (09:27→20:33)
[2022-10-28] MEDS: clonazePAM 0.5 MG TAB PO SCH ×2 (09:28→20:33)
[2022-10-28 09:35] LABS: HCT 30.6 % (34.0-46.0); HGB 10.1 gm/dL (11.4-16.0); MCH 32.6 pg (25.0-35.0); MCV 98.6 fL (80.0-100.0); Macrocytosis Slight; Mean Platelet Volume 7.9; Platelet Count 234 k/uL (150-450); RBC 3.11 m/uL (3.80-5.40); RDW 14.7 % (11.5-15.5); WBC 5.7 k/uL (3.8-10.6)
--- NOTE | 2022-10-28 10:16 | P.PN ---
Progress Note - Text Progress Note Date: 10/28/22 Interval history: Patient was seen today sitting in on group and was agreeable to speak to magnetic tape typewriter operator in the office. She states that mentally she is improving with the medications however continues to state that was is feeling somewhat tired and states that it may be from her hemoglobin being low. she states that she feels more in control and less impulsive and depression and anxiety have been improving. she claims that she slept fairly last night and ended up refusing the trazodone as she does not tolerate it well. claims to be going to groups regularly. she denies any issues with appetite. deneis any side effects at this time. she is denying any AH or VH and denies any Si or HI today Mental status examination: General Appearance: Patient appears to be tall, female stated age is alert, directable, and attempts to cooperate. Patient appears to have fair hygiene and grooming. Behavior: Patient is seated without any agitated behavior. more cooperative today Speech: Patient's speech is fluent and nonpressured. Mood/Affect: Patient reports their mood is improving mildly, affect is congruent and constricted Suicidality/Homicidality: Patient denies having any homicidal ideation intent or plan. Denies any suicidal ideations intent or plan Perceptions: Patient denies any visual hallucinations and denies any auditory hallucinations Though content/process: Patient is not endorsing any delusions or paranoia, more logical today. Patient remains disorganized in her thought processes Memory and concentration: AOX3, grossly intact for the purposes of this session. Judgment and insight: poor, improving mildly IMPRESSIONS: Bipolar disorder mixed type Personality disorder unspecified Alcohol use disorder unspecified Benzodiazepine use disorder unspecified Stimulant use disorder unspecified PLAN: -Patient is admitted under voluntary status to MHU for stabilization of psychiatric symptoms and safety. Patient has signed adult voluntary form and medication consent and is placed in patient's chart. -Medications : decrease klonopin to 0.5 mg bid for anxiety and continue to taper down. continue with lexapro 10 mg daily for mood/anxiety. lithium 300 mg bid for mood stabilization. benadryl prn for sleep. will check lithium level tomorrow morning. -Ativan and Haldol PRN for agitation/aggression NRT - not needed as patient does not smoke. -SW on board for discharge planning. Encourage patient to participate in groups to work on coping skills. likely discharge back home in 1-2 days.
[2022-10-28] MEDS: ACETAMINOPHEN TAB 325 MG TAB PO PRN (20:32)
[2022-10-28] MEDS ORDERED: diphenhydrAMINE 25 MG CAP PO PRN (21:00)
[2022-10-28] MEDS: haloperidoL 5 MG TAB PO PRN (22:36)
[2022-10-29 06:52] VITALS: BP 97/61; PULSE 79; RESP 17; TEMP 99
[2022-10-29] MEDS: ASPIRIN 81 MG PO SCH (08:11)
[2022-10-29] MEDS: CHOLECALCIFEROL 25 MCG (1000 IU) TABLET PO SCH (08:11)
[2022-10-29] MEDS: LOSARTAN 50 MG TAB PO SCH (08:12)
[2022-10-29] MEDS: LITHIUM CARBONATE 300 MG CAP PO SCH (08:12)
[2022-10-29] MEDS: FERROUS SULFATE 325 MG TAB PO SCH (08:12)
[2022-10-29] MEDS: ESCITALOPRAM 10 MG TAB PO SCH (08:12)
[2022-10-29] MEDS: clonazePAM 0.5 MG TAB PO SCH (08:12)
[2022-10-29] MEDS ORDERED: MUPIROCIN 2% OINT 22 GM TUBE TOPICAL SCH ×2 (09:00→09:30)
--- NOTE | 2022-10-29 10:07 | P.DS ---
Providers Date of admission: 10/27/22 00:19 Expected date of discharge: 10/29/22 Attending physician: Festus Giraldo MD Consults: 10/27/22 15:10 Consult Physician Routine Consulting Provider: Nick Murphy Consult Reason/Comments: history and physical Do you want consulting provider notified?: Already Contacted Primary care physician: Stated None - Discharge Diagnosis(es) (1) Bipolar disorder, mixed Current Visit: Yes Status: Acute Priority: High (2) Personality disorder Current Visit: Yes Status: Acute Priority: Medium (3) Alcohol use disorder Current Visit: Yes Status: Acute Priority: High (4) Mild benzodiazepine use disorder Current Visit: Yes Status: Acute Priority: Medium (5) Stimulant use disorder Current Visit: Yes Status: Acute Priority: Medium (6) Suicide attempt by cutting of wrist Current Visit: Yes Status: Acute Priority: High Hospital Course: Admission HPI: Admission note was completed by Dr Garcia "This is a psychiatric evaluation on Cecille Herbert who is a 56-year-old female with long history of mental illness Patient reports that she's been seeing a psychiatrist for over 13 years as an outpatient However she stated that she only takes Xanax and Adderall She reports that she currently lives with her and that she has 3 adult children who have be on their own now She reports that she was hospitalized after she was cutting her wrist and fell that she was aborted to everyone She initially denied that she was drinking too much but feels at times patient brought up alcohol as a common problem She also reports that she was in [place] visiting a friend and that she ended up having his stroke for which she was taken to the hospital She said that she was then treated like a drug addict by the nursing staff and watches thrown off to the streets She denies that she is experiencing any auditory or visual hallucinations She states that she had blood transfusions after admission yesterday and is here for treatment She currently denies any thoughts of wanting to hurt herself or others" Hospital course: Upon admission to the unit patient was directable and agreeable to commence treatment and signed adult voluntary form. Patient was initially brought onto the MHU unit as a transfer from [facility] on a pet and cert after a suicide attempt at home however due to significant blood loss and low Hgb, patient was transferred the same day off the MHU to the medical floors and treated before coming to the in mhu. Gaggerman did a psychiatric consultation while patient was on the medical floors. Patient started taking medications while on the medical floors and then was transferred back to the MHU over the weekend and patient got along well with other patients on the unit and followed unit protocol. Patient was compliant with the medications and denied any side effects throughout hospital course. Patient was started on Lexapro and increased to a dose of 10 mg daily for mood/anxiety, patient was also started on lithium 300 mg twice a day for mood stabilization/suicidal ideations, and a drill when necessary for sleep. Patient was also switched from Xanax 1 mg 3 times a day scheduled as she was taking as an outpatient to Klonopin 3 times a day and was decreased down to 0.5 mg twice a day when necessary for anxiety and we'll continue to taper down as an outpatient. Patient spoke of her stressors and engaged in therapy both group and individual. Patient was also seen by medical team for history and physical exam. Throughout the course of the hospitalization patient gradually improved with regards to mood, anxiety, suicidal thoughts, mood lability, sleep and returned back to their baseline level of functioning. On the day of discharge patient denied any suicidal or homicidal ideations intent or plan denied any auditory or visual hallucinations. Patient endorsed wanting to live for her health and family. The patient denied any access to guns or weapons. Patient denied any paranoia and did not endorse any delusions. Patient does have a significant history of substance abuse and was counseled on abstaining from all substances including alcohol and marijuana. Patient was offered however declined inpatient substance-abuse rehab. Patient was also counseled on the medications and need for regular compliance and was encouraged to follow-up with their outpatient appointment for mental health and also for primary care. Prior to discharge a family meeting will be arranged by director of social services to answer any questions and ensure safety upon discharge. shop worker also to ensure that there are no guns or weapons in the home environment. Mental status exam: General Appearance: Patient appears to be tall, stated age is alert, pleasant, and cooperative. Patient is in no acute distress and has improved hygiene and grooming Behavior: Patient is calmly seated without any agitated behavior. Speech: Patient's speech is fluent and nonpressured. Mood/Affect: Patient reports their mood is "good", affect is congruent and euthymic. Suicidality/Homicidality: Patient denies having any suicidal or homicidal ideation intent or plan. Perceptions: Patient denies any auditory or visual hallucinations. Though content/process: There is no evidence of any delusional thought content and thought process is linear and goal-directed. more future oriented Memory and concentration: AOX3, grossly intact for the purposes of this session. Can spell "WORLD" backwards correctly. Judgment and insight: improved with guarded prognosis Impression: Bipolar disorder, mixed episode Suicide attempt by cutting wrist Benzodiazepine use disorder Alcohol use disorder Stimulant use disorder Plan: -Continue with discharge today as patient has improved and stabilized psychiatrically and is not currently an imminent threat to herself and/or others. Patient will remain at chronically elevated risk for harm to self and/or others due to her impulsivity and substance abuse. -Continue medications: Lexapro 10 mg daily for mood/anxiety, lithium 300 mg twice a day for mood stabilization/suicidal thoughts, benadryl 50 mg qhs prn for insomnia. will give a three day supply of klonopin 0.5 mg bid prn for anxiety and advised patient to plan to cut this/taper off as an outpatient. patient was meant to have lithium drawn this morning prior to discharge, will await level before discharge today -Patient was counseled on the need for medication compliance and appropriate follow-up at mental health and also primary care for medical issues. Patient verbalized understanding and agreed. -Social work to arrange for and conduct family meeting to ensure safety upon discharge and answer any questions/concerns. Social work also to arrange for patients follow up appointments for psychiatric care along with follow up with primary care provider. -Patient counseled on abstaining from recreational drugs and marijuana and alcohol. Was informed/educated on the adverse effects on their physical and mental health. Patient verbally agreed and understood. Patient was offered substance abuse treatment however declined at this time. -Patient was instructed to return to the hospital or seek immediate medical care if their psychiatric or medical symptoms do worsen or reoccur. Allergies Allergy/AdvReac Type Severity Reaction Status Date / Time gabapentin AdvReac agitation, Verified 10/24/22 13:38 "felt like she was jumping out of her skin" prochlorperazine AdvReac Unknown Verified 10/24/22 13:38 [From Compazine] Sulfa (Sulfonamide AdvReac Unknown Verified 10/24/22 13:38 Antibiotics) zolmitriptan [From Zomig] AdvReac Unknown Verified 10/24/22 13:38 Laboratory Results WBC 5.7 k/uL (3.8-10.6) 10/28/22 09:01 RBC 3.11 m/uL (3.80-5.40) L 10/28/22 09:01 Hgb 10.1 gm/dL (11.4-16.0) L 10/28/22 09:01 Hct 30.6 % (34.0-46.0) L 10/28/22 09:01 MCV 98.6 fL (80.0-100.0) 10/28/22 09:01 MCH 32.6 pg (25.0-35.0) 10/28/22 09:01 MCHC 33.0 g/dL (31.0-37.0) 10/28/22 09:01 RDW 14.7 % (11.5-15.5) 10/28/22 09:01 Plt Count 234 k/uL (150-450) 10/28/22 09:01 MPV 7.9 10/28/22 09:01 Macrocytosis Slight 10/28/22 09:01 Vital Signs Temp 99 F 10/29/22 06:51 Pulse 79 10/29/22 06:51 Resp 17 10/29/22 06:51 BP 97/61 10/29/22 06:51 Pulse Ox 97 10/29/22 06:51 FiO2 Patient Condition at Discharge: Stable Plan - Discharge Summary Discharge Rx Participant: No New Discharge Prescriptions: New Mupirocin 2% Oint [Bactroban 2% Oint] 1 applic TOPICAL TID 30 Days #1 each diphenhydrAMINE [Benadryl] 50 mg PO HS PRN 30 Days #60 cap PRN Reason: Insomnia clonazePAM [KlonoPIN] 0.5 mg PO BID PRN 3 Days #6 tab PRN Reason: Anxiety [place] Carbonate 300 mg PO BID 30 Days #60 cap Continue Aspirin EC [Ecotrin Low Dose] 81 mg PO DAILY Losartan Potassium 50 mg PO BID Acetaminophen Tab [Tylenol] 650 mg PO Q6HR PRN tab PRN Reason: Mild Pain Or Fever > 100.5 Ferrous Sulfate [Iron (65 MG Elemental)] 325 mg PO DAILY 30 Days #30 tab Cholecalciferol [Vitamin D3 (25 Mcg = 1000 Iu)] 50 mcg PO DAILY Escitalopram [Lexapro] 10 mg PO DAILY 30 Days #30 tab Discontinued ALPRAZolam [Xanax] 1 mg PO TID traZODone HCL [Desyrel] 50 mg PO HS tab haloperidoL [Haldol] 5 mg PO Q6HR PRN tab PRN Reason: Agitation Escitalopram [Lexapro] 5 mg PO DAILY tab [place] Carbonate 150 mg PO BID cap Discharge Medication List Aspirin EC [Ecotrin Low Dose] 81 mg PO DAILY 10/24/22 [History] Cholecalciferol [Vitamin D3 (25 Mcg = 1000 Iu)] 50 mcg PO DAILY 10/24/22 [History] Losartan Potassium 50 mg PO BID 10/24/22 [History] Acetaminophen Tab [Tylenol] 650 mg PO Q6HR PRN tab 10/26/22 [Rx] Escitalopram [Lexapro] 10 mg PO DAILY 30 Days #30 tab 10/29/22 [Rx] Ferrous Sulfate [Iron (65 MG Elemental)] 325 mg PO DAILY 30 Days #30 tab 10/29/22 [Rx] [place] Carbonate 300 mg PO BID 30 Days #60 cap 10/29/22 [Rx] Mupirocin 2% Oint [Bactroban 2% Oint] 1 applic TOPICAL TID 30 Days #1 each 10/29/22 [Rx] clonazePAM [KlonoPIN] 0.5 mg PO BID PRN 3 Days #6 tab 10/29/22 [Rx] diphenhydrAMINE [Benadryl] 50 mg PO HS PRN 30 Days #60 cap 10/29/22 [Rx] Follow up Appointment(s)/Referral(s): Miguelangel Nolasco DR [Other] - 1 Week () [facility] [NON-STAFF] - 1 Week Patient Instructions/Handouts: Bipolar Disorder (DC), Abuse of Alcohol (DC) Activity/Diet/Wound Care/Special Instructions: Avoid the use of street drugs and alcohol. Take all medications as prescribed. When you are in need of refills on your medications, please contact your medical provider and/or outpatient psychiatrist to have this done. Please go to scheduled outpatient appointments for aftercare treatment. If symptoms return or become worse, call the crisis line at and/or go to the nearest emergency room for evaluation. Follow with your family doctor 1 week after discharge for monitoring of your blood count Discharge Disposition: HOME SELF-CARE
== END 2022-10-29 12:26 | disposition home or self-care (01) | DRG 885 ==
LOC: 3MHU 00:19
PROVIDERS: ADMIT Psychiatry & Neurology Psychiatry; ATTEND Psychiatry & Neurology Psychiatry
DX: F31.60 Bipolar disorder, current episode mixed, unspecified (principal); D62 Acute posthemorrhagic anemia; F19.20 Other psychoactive substance dependence, uncomplicated; X78.9XXA Intentional self-harm by unspecified sharp object, initial encounter; S61.512A Laceration without foreign body of left wrist, initial encounter; F13.10 Sedative, hypnotic or anxiolytic abuse, uncomplicated; F15.10 Other stimulant abuse, uncomplicated; F43.10 Post-traumatic stress disorder, unspecified; F60.9 Personality disorder, unspecified; I10 Essential (primary) hypertension; Z79.82 Long term (current) use of aspirin; Z79.899 Other long term (current) drug therapy; Z86.73 Personal history of transient ischemic attack (TIA), and cerebral infarction without residual deficits; Z86.16 Personal history of COVID-19; F41.9 Anxiety disorder, unspecified; Z71.51 Drug abuse counseling and surveillance of drug abuser; Z71.89 Other specified counseling; Z88.2 Allergy status to sulfonamides; Z88.8 Allergy status to other drugs, medicaments and biological substances; F10.10 Alcohol abuse, uncomplicated
CPT/HCPCS: 80178; 85027